=== PATIENT | female | born 1985 | race Caucasian/White ===

== ENCOUNTER 2019-06-11 16:54 | Emergency (ER) | payer MEDICAID, OTHER ==
[2019-06-11] MEDS ORDERED: Sodium Chloride 0.9% 1,000 ML IV ONE (17:14)
[2019-06-11] MEDS ORDERED: Ketorolac 30 MG/ML SDV IVPUSH ONE (17:14)
[2019-06-11] MEDS ORDERED: Ondansetron 4 MG/2 ML SDV IVPUSH ONE (17:16)
--- NOTE | 2019-06-11 18:30 | CT ---
CT abdomen and pelvis Technique: Multiple axial sections were obtained from above the kidneys inferiorly through the pubic symphysis. Intravenous and oral contrast not utilized. Study performed as a ureteral stone protocol. Findings: Right kidney shows a dilated collecting system. This finding is due to an obstructing 8.9 mm stone located close to the UPJ. No other ureteral calcifications are seen. Multiple small nonobstructing calculi are seen within both kidneys. Small portion of the posterior lung bases that are seen appear within normal limits. Visualized portions of the liver appear unremarkable. Visualized portions of the spleen appear unremarkable. Adrenal glands show no nodule. Pancreas shows no discrete abnormality. Aorta shows no aneurysm. No retroperitoneal adenopathy or mesenteric abnormalities are seen. No pelvic mass or adenopathy is seen. No free fluid is appreciated. Appendix is seen which is normal in size. Impression: 1. 8.9 mm stone located close to the right UPJ causing proximal hydronephrosis. 2. Small nonobstructing calculi within both kidneys. 3. No additional abnormality is seen on CT study of the abdomen and pelvis performed as a ureteral stone protocol. Diagnostic code #3 This report was dictated in MDT
--- NOTE | 2019-06-11 19:54 | EDM.PDOC ---
ED HPI GENERAL MEDICAL PROBLEM - General Chief Complaint: Flank Pain Stated Complaint: KIDNEY PAIN Time Seen by Provider: 06/11/19 17:01 Source of Information: Reports: Patient History Limitations: Reports: No Limitations - History of Present Illness INITIAL COMMENTS - FREE TEXT/NARRATIVE: Stephania Baez is a 34-year-old female who presents the emergency room with chief complaints of right flank pain. Patient reports pain started approximately 1 hour prior to arrival. She complains of severe right flank pain. She reports she has a history of kidney stones. She also complains of nausea, vomiting. Denies any fever, chills, abdominal pain, chest pain or shortness of breath. She appears to be uncomfortable. Onset: Today Onset Date: 06/11/19 Onset Time: 15:30 Duration: Getting Worse Location: Reports: Back Quality: Reports: Throbbing Severity: Moderate Improves with: Reports: None Worsens with: Reports: None Associated Symptoms: Reports: Nausea/Vomiting. Denies: Chest Pain, Diaphoresis , Fever/Chills, Shortness of Breath Right Flank Pain Score (Numeric/FACES): 10 - Related Data Allergies Allergy/AdvReac Type Severity Reaction Status Date / Time amoxicillin Allergy Severe Rash Verified 06/11/19 17:10 ciprofloxacin [From Cipro] Allergy Severe Rash Verified 06/11/19 17:10 metronidazole [From Flagyl] Allergy Severe Rash Verified 06/11/19 17:10 Home Meds: Home Meds . [No Known Home Meds] 06/11/19 [History] Past Medical History - Past Health History Medical/Surgical History: Denies Medical/Surgical History ED ROS GENERAL - Review of Systems Review Of Systems: Comprehensive ROS is negative, except as noted in HPI. Constitutional: Denies: Fever, Chills HEENT: Reports: No Symptoms Respiratory: Denies: Shortness of Breath Cardiovascular: Denies: Chest Pain Endocrine: Reports: No Symptoms GI/Abdominal: Reports: Nausea, Vomiting. Denies: Abdominal Pain : Reports: Dysuria, Flank Pain (right) Musculoskeletal: Reports: No Symptoms Skin: Reports: No Symptoms Neurological: Reports: No Symptoms Psychiatric: Reports: No Symptoms Hematologic/Lymphatic: Reports: No Symptoms Immunologic: Reports: No Symptoms ED EXAM, RENAL/ - Physical Exam Exam: See Below Exam Limited By: No Limitations General Appearance: Alert, WD/WN, No Apparent Distress Respiratory/Chest: No Respiratory Distress, Lungs Clear, Normal Breath Sounds, No Accessory Muscle Use, Chest Non-Tender Cardiovascular: Normal Peripheral Pulses, Regular Rate, Rhythm, No Edema, No Gallop, No JVD, No Murmur, No Rub GI/Abdominal: Normal Bowel Sounds, Soft, Non-Tender, No Organomegaly, No Distention, No Abnormal Bruit, No Mass Back Exam: Full Range of Motion, CVA Tenderness (R) Extremities: Normal Inspection, Normal Range of Motion, Non-Tender, No Pedal Edema, Normal Capillary Refill Neurological: Alert, Oriented, Normal Cognition, Normal Gait, Normal Reflexes, No Motor/Sensory Deficits Psychiatric: Normal Affect, Normal Mood Skin Exam: Warm, Dry, Intact, Normal Color, No Rash Lymphatic: No Adenopathy Course - Vital Signs Last Recorded V/S: Last Vital Signs Temp 97.4 F 06/11/19 17:08 Pulse 101 H 06/11/19 17:08 Resp 16 06/11/19 17:08 BP Pulse Ox 100 06/11/19 17:08 - Orders/Labs/Meds Orders: Active Orders 24 hr Category Date Time Status CBC WITH AUTO DIFF [HEME] Stat Lab 06/11/19 17:10 Ordered COMPREHENSIVE METABOLIC PN,CMP [CHEM] Stat Lab 06/11/19 17:10 Ordered cefTRIAXone 1 GM with Lidocaine 1% 2.1 ML IM Med 06/11/19 20:00 Ordered cefTRIAXone [Rocephin] 1 gm Lidocaine 1% [Xylocaine 1%] 2.1 ml IM Q24H Medication Orders Ceftriaxone Sodium 1 gm/ (Lidocaine HCl 2.1 ml) 0 gm IM Q24H [facility] Labs: Laboratory Tests 06/11/19 Range/Units 17:15 Urine Color Yellow (Yellow) Urine Appearance Cloudy H (Clear) Urine pH 6.5 (5.0-8.0) Ur Specific [place] > or = 1.030 (1.005-1.030) Urine Protein Negative (Negative) Urine Glucose (UA) Negative (Negative) Urine Ketones Negative (Negative) Urine Occult Blood 1+ H (Negative) Urine Nitrite Positive H (Negative) Urine Bilirubin Negative (Negative) Urine Urobilinogen 0.2 (0.2-1.0) Ur Leukocyte Esterase 1+ H (Negative) Urine RBC 20-30 H (0-5) /hpf Urine WBC 30-40 H (0-5) /hpf Ur Squamous Epith Cells 10-20 H (0-5) /hpf Urine Bacteria Many H (FEW) /hpf Urine Mucus Few (FEW) /hpf Meds: Medications Generic Name Dose Route Start Last Admin Trade Name Freq PRN Reason Stop Dose Admin Ceftriaxone Sodium 1 gm/ 0 gm 06/11/19 20:00 Lidocaine HCl 2.1 ml IM Q24H KARRI Discontinued Medications Generic Name Dose Route Start Last Admin Trade Name Freq PRN Reason Stop Dose Admin Sodium Chloride 1,000 mls @ 999 mls/hr 06/11/19 17:14 Normal Saline IV 06/11/19 18:14 ONETIME ONE Ketorolac Tromethamine 30 mg 06/11/19 17:14 06/11/19 17:47 Toradol IVPUSH 06/11/19 17:15 30 mg ONETIME ONE Administration Ketorolac Tromethamine 30 mg 06/11/19 20:00 Toradol IM 06/11/19 20:01 ONETIME ONE Ketorolac Tromethamine Confirm 06/11/19 19:57 Toradol Administered 06/11/19 19:58 Dose 30 mg .ROUTE .STK-MED ONE Ondansetron HCl 4 mg 06/11/19 17:16 06/11/19 17:47 Zofran IVPUSH 06/11/19 17:17 4 mg ONETIME ONE Administration - Re-Assessments/Exams Free Text/Narrative Re-Assessment/Exam: 06/11/191829 attempted numerous times to start an IV and draw blood was unsuccessful. She is refusing further blood draw attempts or IV starts. 1844 CT result reveals an 8.9 mm stone located close to the right UPJ causing proximal hydronephrosis. Urinalysis reveals positive nitrates, RBCs 10-20, WBCs 30-40. I informed patient that she would need to be transferred to another facility with the urologist for further evaluation for possible lithotripsy. Reports she wants to go to [facility] in [place]. 1914 spoke to [facility] in [place] and informed him the patient would like to come via private ambulance. Informed him that she was a hard stick and patient is refusing blood sticks or IV. Spoke with physician at [facility] who agreed to accept patient when she arrives. 1929 I medicate the patient with Rocephin 1 g IM. Will medicate with Toradol 30 mg IM for pain. Instructed the patient to remain n.p.o. and to go directly to the emergency room [facility] in [place]. Patient verbalized understanding and his girlfriend at discharge. Patient is stable at time of discharge. Blood pressure is 120/74 heart rate 96 temperature 97.1. Departure - Departure Time of Disposition: 20:00 Disposition: Home, Self-Care Clinical Impression: UTI, Urinary tract infectious disease, Kidney stone on right side - Discharge Information Instructions: Kidney Stones, [id number] Referrals: PCP,Not In Area [Primary Care Provider] - Forms: ED Department Discharge Additional Instructions: You were seen and evaluated today for right flank pain. Your CAT scan revealed you have a large kidney stone in your right kidney. Do not eat or drink anything go immediately to the ER instead at [facility] in [place]. Return to the emergency room for any new or acute worsening symptoms. Sepsis Event Note - Evaluation Sepsis Screening Result: No Definite Risk - Focused Exam Vital Signs: Vital Signs Temp Pulse Resp Pulse Ox 06/11/19 17:08 97.4 F 101 H 16 100 Date Exam was Performed: 06/11/19 Time Exam was Performed: 20:02 - My Orders Last 24 Hours: My Active Orders 06/11/19 17:10 CBC WITH AUTO DIFF [HEME] Stat COMPREHENSIVE METABOLIC PN,CMP [CHEM] Stat 06/11/19 20:00 cefTRIAXone 1 GM with Lidocaine 1% 2.1 ML IM cefTRIAXone [Rocephin] 1 gm Lidocaine 1% [Xylocaine 1%] 2.1 ml IM Q24H - Assessment/Plan Last 24 Hours: My Active Orders 06/11/19 17:10 CBC WITH AUTO DIFF [HEME] Stat COMPREHENSIVE METABOLIC PN,CMP [CHEM] Stat 06/11/19 20:00 cefTRIAXone 1 GM with Lidocaine 1% 2.1 ML IM cefTRIAXone [Rocephin] 1 gm Lidocaine 1% [Xylocaine 1%] 2.1 ml IM Q24H
[2019-06-11] MEDS ORDERED: Ketorolac 30 MG/ML SDV ONE (19:57)
[2019-06-11] MEDS ORDERED: cefTRIAXone 1 GM, Lidocaine 1% 2.1 ML IM SCH ×2 (20:00)
[2019-06-11] MEDS ORDERED: Ketorolac 30 MG/ML SDV IM ONE (20:00)
== END 2019-06-11 20:10 ==
LOC: JD.ED 16:54
DX: N13.2 Hydronephrosis with renal and ureteral calculous obstruction (principal); N39.0 Urinary tract infection, site not specified; Z88.0 Allergy status to penicillin; Z88.8 Allergy status to other drugs, medicaments and biological substances
CPT/HCPCS: 74176; 81001; 96372; 96374; 96375; 99284; J0696; J1885; J2001; J2405